=== PATIENT | female | born 1940 | race Caucasian/White ===

== ENCOUNTER 2019-05-13 10:51 | Outpatient (CLI) | payer MEDICARE, OTHER | END 2019-05-13 10:52 | disposition critical access hospital (66) | LOC: EMS 10:51 | PROVIDERS: ATTEND Surgery | DX: R07.1 Chest pain on breathing (principal) | CPT/HCPCS: A0425; A0429 ==

== ENCOUNTER 2019-05-13 11:05 | Emergency (ER) | payer MEDICARE, OTHER ==
[2019-05-13 11:11] VITALS: BP 121/72
--- NOTE | 2019-05-13 11:16 | ED Physician Documentation ---
History of Present Illness - Stated complaint Stated Complaint: CHEST PAIN - Chief complaint Chief Complaint: Trauma Ch/Bk - History obtained from History obtained from: Patient - Additonal information Additional information: Patient is a 78-year-old female with history of thyroid disease and hypertension presenting with right rib pain after accidentally running into an open cabinet several days ago. Patient reports that she ran directly into the corner which caused swelling, bruising, and pain to her right anterior chest. Patient reports worsening pain with movement and deep breathing, but denies cough or fever. Patient also reports that she bumped her left leg directly below the left knee when this happened which has resulted in pain and swelling, but no other changes such as in sensation, strength, range of motion to the left leg. Patient takes 3 baby aspirins daily. No other improving or worsening factors noted. Review of Systems Constitutional: denies: Fever Cardiac: reports: Chest pain / pressure Respiratory: reports: Dyspnea. 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 - Present Medications Home Medications: Ambulatory Orders Medication Instructions Recorded Confirmed Hydrocodone/Acetaminophen 1 - 2 each PO Q6H PRN #14 tablet 05/13/19 [Hydrocodon-Acetaminophen 5-325] Levothyroxine [Synthroid] 05/13/19 Lisinopril 05/13/19 - Allergies Allergies/Adverse Reactions: Allergies Allergy/AdvReac Type Severity Reaction Status Date / Time No Known Drug Allergies Allergy Verified 05/13/19 11:11 PD ED PE NORMAL - Vitals Vital signs reviewed: Yes - General General: Alert and oriented X 3, No acute distress, Well developed/nourished - HEENT HEENT: Atraumatic, Moist mucous membranes - Cardiac Cardiac: RRR, No murmur, Other (Obvious swelling and bruising with pain to right anterior upper ribs) - Respiratory Respiratory: No respiratory distress, Clear bilaterally - Abdomen Abdomen: Soft, Non tender, Non distended - Derm Derm: Normal color, Warm and dry, No rash - Extremities Extremities: No deformity. No: No tenderness to palpate (Mild swelling and tenderness to palpation of proximal left tib-fib without joint involvement.) - Neuro Neuro: No motor deficit, No sensory deficit - Psych Psych: Normal mood, Normal affect Results - Vitals Vitals: Vital Signs - 24 hr 05/13/19 11:08 Temperature 36.6 C Heart Rate 59 L Respiratory 24 Rate Blood Pressure 121/72 O2 Saturation 100 Oxygen O2 Source Room air PD MEDICAL DECISION MAKING - ED course Complexity details: reviewed results, re-evaluated patient, considered differential, d/w patient, d/w family ED course: Patient presenting with chest wall and possible rib injury after running into a cabinet. Patient has obvious ecchymosis and swelling to the right chest. Plain films obtained which not find evidence of rib fracture or other complication including pneumothorax or hemothorax. No obvious signs of pulmonary contusion. Patient also complained of left lower leg pain from the same incident complaint films also obtained, which returned rather unremarkable. Do not have high suspicion for pneumonia, PE, ACS, [place], unstable angina, dissection, aneurysm, but considered. Feel this is all traumatic in nature. Discussed results and recommendations with patient including options of narcotics and muscle relaxants. Patient adamantly declines muscle relaxants given her adverse respon se to such. Discussed other supportive cares, use of narcotics, return precautions, and appropriate follow-up. Patient has friend in the room and she is able to drive the patient home. Departure - Departure Disposition: Home, Self Care Clinical Impression: Contusion of chest wall Qualifiers: Encounter type: initial encounter Laterality: right Qualified Code(s): S20.211A - Contusion of right front wall of thorax, initial encounter Condition: Good Instructions: ED Contusion Chest Wall Follow-Up: your,doctor [Other] Prescriptions: Hydrocodone/Acetaminophen [Hydrocodon-Acetaminophen 5-325] 1 - 2 each PO Q6H PRN #14 tablet PRN Reason: pain Comments: Please continue home medications as previously recommended. Please take Beulah as needed for pain and do not combine with alcohol, Tylenol, or driving. If taking Beulah regularly, recommend use of stool softener or laxative to avoid constipation. If not taking Beulah, may use ibuprofen/Tylenol. Also recommend gentle stretching, massage, and heat application to avoid muscle spasm. Follow- up with primary care physician in next 2 to 3 days and return to ED sooner if experience worsening symptoms or have other concerns.
--- NOTE | 2019-05-13 12:16 | XRAY Report ---
Reason: concern for right rib fracture Procedure Date: 05/13/2019 Accession Number: [id number] / [id number] Procedure: XR - Ribs w/PA Chest RT CPT Code: FULL RESULT: EXAM: RIGHT RIB RADIOGRAPHY EXAM DATE: 05/13/2019 12:06 PM. CLINICAL HISTORY: Concern for right rib fracture. COMPARISON: None. TECHNIQUE: 1 view of the chest and 2 views of the ribs. BB marker. FINDINGS: Bones: Normal. No fracture or bone lesion. Lungs: No focal opacities. No pneumothorax. No pleural effusions. Mediastinum: Atherosclerotic aortic calcifications. Other: None. IMPRESSION: Normal chest and rib radiography. [facility]
--- NOTE | 2019-05-13 12:25 | XRAY Report ---
Reason: ran into cabinet Procedure Date: 05/13/2019 Accession Number: [id number] / [id number] Procedure: XR - Tib/Fib LT CPT Code: FULL RESULT: EXAM: LEFT TIBIA/FIBULA RADIOGRAPHY EXAM DATE: 05/13/2019 12:07 PM. CLINICAL HISTORY: Ran into cabinet. Struck lower leg on cabinet. COMPARISON: None. TECHNIQUE: 2 views. FINDINGS: Bones: No acute fracture. Small 3 mm calcific density projecting along posterior superior aspect of proximal fibula on lateral view. Question secondary ossicle versus tiny remote avulsion. Joints: Left knee degenerative changes include spurring of tibial spines and intercondylar notch. Visualized left ankle joint is unremarkable. Soft Tissues: Normal. No soft tissue swelling. IMPRESSION: 1. No acute fracture evident. 2. Small 3 mm secondary ossicle versus remote avulsion along the posterior proximal fibula. 3. At least mild left knee degenerative changes. [facility]
== END 2019-05-13 13:38 | disposition home or self-care (01) ==
LOC: ED 11:05
DX: S20.211A Contusion of right front wall of thorax, initial encounter (principal); M79.662 Pain in left lower leg; W22.09XA Striking against other stationary object, initial encounter; I10 Essential (primary) hypertension; E03.9 Hypothyroidism, unspecified; Z79.82 Long term (current) use of aspirin
CPT/HCPCS: 99283